=== PATIENT | female | born 1965 | race African-American/Black ===

== ENCOUNTER 2017-02-19 06:46 | Emergency (ER) | payer OTHER ==
[~2017-02-19] VITALS: Ht 154.9 cm; Wt 70.6 kg
[~2017-02-19 06:46] MED LIST: DAILY MULTIPLE1 EACH PO; FUROSEMIDE40 MG PO; LEVO-T50 MCG PO; LISINOPRIL20 MG PO; METOPROLOL TART25 MG PO; POLY-VITAMIN1 EACH PO; ROCALTROL0.25 MCG PO; VITAMIN B-12250 MCG PO; VITAMIN D32000 UNI1 PO
[2017-02-19] MEDS ORDERED: TYLENOL WITH C1 EACH PO (08:19)
[2017-02-19 08:29] VITALS: BP 171/100
== END 2017-02-19 08:29 | disposition home or self-care (01) ==
LOC: EME 06:46
DX: M75.92 Shoulder lesion, unspecified, left shoulder (principal); I10 Essential (primary) hypertension
CPT/HCPCS: 73030; 99281; 99283

== ENCOUNTER 2017-08-21 07:54 | Emergency (ER) | payer OTHER ==
[~2017-08-21] VITALS: Ht 154.9 cm; Wt 67.1 kg
[~2017-08-21 07:54] MED LIST changes: +TYLENOL WITH C1 EACH PO
[2017-08-21 08:28] LABS: HEMATOCRIT 29.5 % (36.0-46.0); HEMOGLOBIN 9.3 G/DL (11.9-15.5); MCHC 31.5 G/DL (30.0-36.0); MCV 95.2 FL (83-99); PLATELET COUNT 204 K/uL (156-360); RBC DIS.WIDTH-CV 13.8 % (11.8-14.6); RBC DIS.WIDTH-SD 48.7 % (39-53); WHITE BLOOD COUNT 5.3 K/uL (4.1-10.2)
[2017-08-21 08:37] LABS: ALBUMIN 2.9 g/dL (3.2-4.8); CHLORIDE 117 mEq/L (99-109); POTASSIUM 4.6 mEq/L (3.7-5.4); SODIUM 143 mEq/L (136-147)
[2017-08-21 08:39] LABS: GLUCOSE 107 mg/dL (70-99)
[2017-08-21 08:40] LABS: TOTAL PROTEIN 6.3 g/dL (6.4-8.3)
[2017-08-21 08:41] LABS: TOTAL BILIRUBIN 0.2 mg/dL (0.0-1.0)
[2017-08-21 08:43] LABS: ALKALINE PHOSPHATASE 127 IU/L (3-129); GFR ESTIMATE (CALCULATED) 15 mL/min/
[2017-08-21 08:44] LABS: UREA NITROGEN (BUN) 56 mg/dL (9-23)
[2017-08-21 08:45] LABS: AST (GOT) 52 IU/L (2-34)
[2017-08-21 08:46] LABS: ALT (GPT) 67 IU/L (3-49); LIPASE 218 U/L (1.0-51.0)
[2017-08-21 08:52] LABS: QUANTITATIVE HCG 4.3 MIU/ML
[2017-08-21 11:33] LABS: MAGNESIUM 2.1 mg/dL (1.3-2.7)
[2017-08-21 11:51] LABS: APPEARANCE CLEAR ((CLEAR)); BILIRUBIN NEGATIVE; BLOOD SMALL; COLOR YELLOW ((YELLOW)); GLUCOSE (STRIP) 50; KETONES NEGATIVE; LEUKOCYTES NEGATIVE; NITRITE NEGATIVE; PROTEIN (STRIP) >=500; SPECIFIC GRAVITY 1.017 (1.000-1.030); UROBILINOGEN 0.2 MG/DL (0.2-1.0)
[2017-08-21 11:54] LABS: TROP-I INTERPRETATION NEGATIVE; TROPONIN-I < 0.01 ng/mL (0.0-0.30)
[2017-08-21 11:58] LABS: BACTERIA NONE SEEN /HPF; EPITHELIAL CELLS RARE /HPF; HYALINE CASTS 0-5 /LPF; MUCUS TRACE /LPF; RED BLOOD CELLS 0-5 /HPF (0-5); UCUL ADDED? NO; WHITE BLOOD CELLS 0-5 /HPF (0-5)
[2017-08-21] MEDS ORDERED: MECLIZINE HCL25 MG PO (13:50)
[2017-08-21 15:33] VITALS: BP 176/101
== END 2017-08-21 15:38 | disposition home or self-care (01) ==
LOC: EME 07:54
PROVIDERS: Emergency Medicine
DX: I12.9 Hypertensive chronic kidney disease with stage 1 through stage 4 chronic kidney disease, or unspecified chronic kidney disease (principal); N18.3 Chronic kidney disease, stage 3 (moderate); R42 Dizziness and giddiness; R11.0 Nausea; Z90.49 Acquired absence of other specified parts of digestive tract
CPT/HCPCS: 70450; 80053; 81003; 83690; 83735; 84100; 84484; 84702; 85027; 93005; 99281; 99285; J7030